=== PATIENT | male | born 1965 | race Two or more races ===

== ENCOUNTER 2018-09-14 15:30 | Emergency (ER) | payer OTHER ==
[~2018-09-14] VITALS: Ht 175.3 cm; Wt 79.4 kg
== END 2018-09-14 19:46 | disposition home or self-care (01) ==
LOC: ER 15:30
DX: M76.892 Other specified enthesopathies of left lower limb, excluding foot (principal)

== ENCOUNTER 2020-09-22 19:53 | Emergency (ER) | payer OTHER ==
[~2020-09-22] VITALS: Ht 175.3 cm; Wt 81.6 kg
[2020-09-22] MEDS ORDERED: RELAFEN DS1000 MG (20:23)
== END 2020-09-22 22:47 | disposition home or self-care (01) ==
LOC: ER 19:53
DX: L03.012 Cellulitis of left finger (principal)

== ENCOUNTER 2021-03-03 23:52 | Emergency (ER) | payer OTHER ==
[~2021-03-03] VITALS: Ht 175.3 cm; Wt 81.6 kg
[~2021-03-03 23:52] MED LIST: RELAFEN DS1000 MG
[2021-03-04] MEDS ORDERED: ZYNCOF 20-400120 ML PO (04:26)
== END 2021-03-04 04:39 | disposition home or self-care (01) ==
LOC: ER 23:52
DX: U07.1 COVID-19 (principal); B34.9 Viral infection, unspecified; R50.9 Fever, unspecified

== ENCOUNTER 2021-05-26 07:55 | Outpatient (CLI) | payer OTHER ==
[~2021-05-26 07:55] MED LIST changes: +ZYNCOF 20-400120 ML PO
== END 2021-05-26 07:59 | disposition home or self-care (01) ==
LOC: SONOGRAMA 07:55
PROVIDERS: ATTEND Pathology Anatomic Pathology & Clinical Pathology
DX: E04.8 Other specified nontoxic goiter (principal)